=== PATIENT | female | born 1945 | race Caucasian/White ===

== ENCOUNTER → 2017-07-11 | Outpatient (CLI) | payer OTHER ==
[~2017-07-11] MED LIST: ACET-1138 PO; AMOX500C3 PO; ASPI1POW10 PO; CALC500C70 PO; CHOLTAB12 PO; CYAN1LOZ PO; FRRG PO; IRON20IN IM; LATA0.5S OPB; LEVO125T5 PO; MAGN400T6 PO; METO100T44 PO; MULT-506 PO; NYSTCRE11 TOP; PRLSR20 PO; RIBO100C PO; ROSU40TA PO; TOPI25TA10 PO
--- NOTE | 2017-07-11 11:25 | DIAGNOSTIC IMAGING REPORT ---
CERVICAL WITHOUT CONTRAST HISTORY: Headaches. Pain. CERVICAL STENOSIS,CERVICAL MIGRAINE HEADACHES TECHNIQUE: Multiplanar multisequence MRI of the cervical spine was performed without the use of contrast. COMPARISON STUDY: 12/12/2011 FINDINGS: Signal characteristics of the vertebral bodies are unremarkable. No bone marrow replacing process is identified. Signal characteristics of the cervical cord are within normal limits. Considerable degenerative disc changes throughout. This is similar compared to the prior study. C2-C3: Mild central disc bulge. No impact upon the cervical cord or neural foramina. C3-C4: Broad-based posterior bulging disc with mild posterior osteophytic reaction. This is in contact with but shows no significant deformity of the cervical cord. Moderate narrowing of the left and to lesser extent right neural foramina unchanged from the prior exam. C4-C5: Mild broad-based disc herniation. Contact with but no significant deformity of the cervical cord. Moderate osteophytic narrowing left neural foramina unchanged in the prior study. C5-C6: Broad-based left central disc herniation creating mild deformity left anterior aspect cervical cord. This is slightly increased in prominence in the prior study. Considerable narrowing of the neuroforamina bilaterally. C6-C7: Mild broad-based bulging disc similar as compared to the prior study. No significant impact with cervical cord. Moderate narrowing of the left and to a lesser extent right neural foramina. C7-T1: No significant central canal or neural foraminal narrowing. IMPRESSION: 1. Significant multilevel degenerative disc change at the entire cervical region. 2. Broad-based posterior bulging discs and or mild disc herniations at multiple levels with disc considered most prominent at C5-C6. 3. The findings of C5-C6 are slightly progressive compared to the prior exam. 4. Moderate narrowing of several neural foramina bilaterally at essentially unchanged in the prior exam. The above report was generated using voice recognition software. It may contain grammatical, syntax or spelling errors. Electronically signed by: Kevin Clemons M.D. 07/11/2017 11:24 AM Dictated Date/Time: 07/11/2017 11:15 AM
== END | disposition home or self-care (01) ==
LOC: C.MRIBC 09:58
PROVIDERS: ATTEND Orthopaedic Surgery Orthopaedic Surgery of the Spine
DX: M48.02 Spinal stenosis, cervical region (principal); M50.20 Other cervical disc displacement, unspecified cervical region